=== PATIENT | male | born 1990 | race Caucasian/White ===

== ENCOUNTER 2022-08-31 03:26 | Emergency (ER) | payer OTHER ==
[~2022-08-31] VITALS: Ht 185.4 cm; Wt 120.2 kg
[2022-08-31 04:05] LABS: BASOPHILS ABSOLUTE AUTO 0.03 K/mm3 (0.00-0.23); BASOPHILS PERCENT AUTO 0 % (0-2); EOSINOPHILS ABSOLUTE AUTO 0.29 K/mm3 (0.00-0.68); EOSINOPHILS PERCENT AUTO 3 % (0-6); Hematocrit 48.8 % (37.0-53.0); Hemoglobin 16.7 g/dL (13.5-17.5); IMMATURE GRAN ABSOLUTE AUTO 0.03 K/mm3 (0.00-0.10); IMMATURE GRAN PERCENT AUTO 0 % (0-1); LYMPHOCYTES ABSOLUTE AUTO 3.45 K/mm3 (0.84-5.20); LYMPHOCYTES PERCENT AUTO 31 % (21-46); MONOCYTES ABSOLUTE AUTO 0.95 K/mm3 (0.16-1.47); MONOCYTES PERCENT AUTO 9 % (4-13); Mean Corpuscular HGB 28.4 pg (26.0-34.0); Mean Corpuscular HGB Conc 34.2 g/dL (31.5-36.5); Mean Corpuscular Volume 83 fL (80-100); Mean Platelet Volume 9.6 fL (9.1-12.4); NEUTROPHILS ABSOLUTE AUTO 6.36 K/mm3 (1.96-9.15); NEUTROPHILS PERCENT AUTO 57 % (41-73); Platelet Count 332 K/mm3 (150-400); RDW Coefficient Variation 12.2 % (11.7-14.2); RDW Standard Deviation 37.2 fL (35.1-46.3); Red Blood Cell Count 5.88 M/mm3 (4.30-5.90); White Blood Cell Count 11.11 K/mm3 (4.00-11.30)
[2022-08-31 04:29] LABS: Albumin/Globulin Ratio 0.9 (0.8-1.8); Bilirubin, Total 0.4 mg/dL (0.1-1.0); Bun/Creatinine Ratio 11.5 (12.0-20.0); Calcium, Blood 9.3 mg/dL (8.5-10.1); Creatinine, Blood 1.04 mg/dL (0.60-1.20); Globulin, Blood 4.5 g/dL (2.2-4.0); Potassium, Blood 3.8 mmol/L (3.5-5.5); Total Protein, Blood 8.5 g/dL (6.4-8.2)
[2022-08-31 04:45] VITALS: BP 139/93
[2022-08-31 05:36] LABS: Source, Urine Clean Catch
[2022-08-31 05:50] LABS: Appearance, Urine Clear (Clear); Bilirubin, Urine Neg (Neg); Blood, Urine Neg (Neg); Color, Urine Yellow (P-Yellow); Glucose Qualitative, Urine Neg (Neg); Ketones, Urine Neg (Neg); Leukocyte Esterase, Urine Neg (Neg); Nitrite, Urine Neg (Neg); Protein, Urine Neg (Neg); Specific Gravity, Urine 1.025 (1.003-1.022); Urobilinogen, Urine NORM (Normal)
[2022-08-31] MEDS ORDERED: DICY20 PO (07:00)
== END 2022-08-31 07:17 | disposition home or self-care (01) ==
LOC: ER 03:26
PROVIDERS: Student in an Organized Health Care Education/Training Program
DX: K59.00 Constipation, unspecified (principal)
CPT/HCPCS: 74018; 80053; 81003; 83690; 85025; 99284-25; A9270

== ENCOUNTER 2024-05-29 06:12 | Emergency (ER) | payer OTHER ==
[~2024-05-29] VITALS: Ht 185.4 cm; Wt 115.7 kg
[~2024-05-29 06:12] MED LIST: DICY20 PO
[2024-05-29] MEDS ORDERED: Ketorolac Tromethamine 30mg Vial IM ONE (07:45)
[2024-05-29] MEDS ORDERED: Methocarbamol 500 MG Tab PO ONE (07:50)
[2024-05-29] MEDS ORDERED: Methyl Salicylate/Menth/Camph 57 GM TUBE TOP ONE (08:30)
[2024-05-29] MEDS ORDERED: Morphine Sulfate IR 15 MG Tab PO ONE (08:35)
[2024-05-29] MEDS ORDERED: Robaxin750 MG PO (10:20)
[2024-05-29 10:30] VITALS: BP 124/93
== END 2024-05-29 10:45 | disposition home or self-care (01) ==
LOC: ER 06:12
DX: S39.012A Strain of muscle, fascia and tendon of lower back, initial encounter (principal); M62.830 Muscle spasm of back; W18.30XA Fall on same level, unspecified, initial encounter; Y93.67 Activity, basketball
CPT/HCPCS: 72100; 96372; 99283-25; A9270; J1885

== ENCOUNTER 2024-11-25 18:49 | Emergency (ER) | payer BC ==
[~2024-11-25] VITALS: Ht 185.4 cm; Wt 118.4 kg
[~2024-11-25 18:49] MED LIST changes: +Robaxin750 MG PO
[2024-11-25 19:56] VITALS: BP 163/115
== END 2024-11-25 23:27 | disposition home or self-care (01) ==
LOC: ER 18:49
DX: S61.512A Laceration without foreign body of left wrist, initial encounter (principal); W25.XXXA Contact with sharp glass, initial encounter
CPT/HCPCS: 12002; 73100; 99283-25